=== PATIENT | male | born 1970 | race Caucasian/White ===

== ENCOUNTER 2019-11-17 06:26 | Day surgery (SDC) | payer OTHER ==
[~2019-11-17 06:26] MED LIST: Lactated Ringers 1,000 ML IV SCH
[2019-11-17] MEDS ORDERED: Midazolam 1 MG/ML 2 ML SDV ONE (07:22)
[2019-11-17] MEDS ORDERED: fentaNYL 100 MCG/2 ML SDV ONE (07:22)
[2019-11-17] MEDS ORDERED: Lidocaine 2% 5 ML SDV ONE (07:22)
[2019-11-17] MEDS ORDERED: Propofol 200 MG/20 ML SDV ONE (07:22)
--- NOTE | 2019-11-17 07:27 | PCM.PREANE ---
Preanesthetic Assessment - Anesthesia/Transfusion/Family Hx Anesthesia History: Prior Anesthesia Without Reaction Family History of Anesthesia Reaction: No Transfusion History: No Prior Transfusion(s) - Review of Systems General: No Symptoms Pulmonary: No Symptoms Cardiovascular: No Symptoms Gastrointestinal: No Symptoms Neurological: No Symptoms Other: Reports: None - Physical Assessment NPO Status Date: 11/16/19 Height: 5 ft 5 in Weight: 88.451 kg ASA Class: 2 Mental Status: Alert & Oriented x3 Airway Class: Mallampati = 2 Dentition: Reports: Normal Dentition ROM/Head Extension: Full Lungs: Clear to Auscultation, Normal Respiratory Effort Cardiovascular: Regular Rate, Regular Rhythm - Allergies Allergies/Adverse Reactions: Allergies Allergy/AdvReac Type Severity Reaction Status Date / Time No Known Allergies Allergy Verified 11/17/19 07:18 - Anesthesia Plan Pre-Op Medication Ordered: None - Acknowledgements Anesthesia Type Planned: General Anesthesia Pt an Appropriate Candidate for the Planned Anesthesia: Yes Alternatives and Risks of Anesthesia Discussed w Pt/Guardian: Yes Pt/Guardian Understands and Agrees with Anesthesia Plan: Yes Additional Comments: PMH: dm2, htn PLAN: ga/lma PreAnesthesia Questionnaire - Past Health History Medical/Surgical History: Denies Medical/Surgical History HEENT History: Reports: Impaired Vision Other HEENT History: wears glasses Cardiovascular History: Reports: None Respiratory History: Reports: None Gastrointestinal History: Reports: GERD Genitourinary History: Reports: Renal Calculus Musculoskeletal History: Reports: Osteoarthritis Neurological History: Reports: Migraines, Other (See Below) Other Neuro History: no migraines after neck surgery Psychiatric History: Reports: None Endocrine/Metabolic History: Reports: Obesity/BMI 30+, Other (See Below) Other Endocrine/Metabolic History: "insulin resistant" Hematologic History: Reports: None Immunologic History: Reports: None Oncologic (Cancer) History: Reports: None Dermatologic History: Reports: None - Infectious Disease History Infectious Disease History: Reports: Chicken Pox - Past Surgical History Head Surgeries/Procedures: Reports: None HEENT Surgical History: Reports: None Cardiovascular Surgical History: Reports: None Respiratory Surgical History: Reports: None GI Surgical History: Reports: None Male Surgical History: Reports: None Endocrine Surgical History: Reports: None Neurological Surgical History: Reports: C-Spine Other Neurological Surgeries/Procedures: neck surgery Musculoskeletal Surgical History: Reports: Shoulder Surgery Other Musculoskeletal Surgeries/Procedures:: Rotator cuff repair of the right shoulder Oncologic Surgical History: Reports: None Dermatological Surgical History: Reports: None - SUBSTANCE USE Smoking Status *Q: Former Smoker Tobacco Use Within Last Twelve Months: No - HOME MEDS Home Medications: Home Meds Hydrocortisone [Hydrocortisone 2.5% Crm] 1 applic TOP ASDIRECTED PRN 11/11/19 [ History] Lisinopril [Zestril] 5 mg PO DAILY 11/11/19 [History] Pantoprazole Sodium 40 mg PO DAILY 11/11/19 [History] metFORMIN HCl [Metformin HCl] 500 mg PO BID 11/11/19 [History] Methocarbamol [Robaxin-750] 750 mg PO 11/17/19 [History] - CURRENT (IN HOUSE) MEDS Current Meds: Current Medications Cefazolin Sodium/Dextrose 2 gm (/ Premix) 50 mls @ 100 mls/hr IV ONCALL DILAN Lactated Ringer's (Ringers, Lactated) 1,000 mls @ 100 mls/hr IV ASDIRECTED DILAN Last Admin: 11/17/19 07:17 Dose: 100 mls/hr
[2019-11-17] MEDS ORDERED: Bupivacaine 0.5% 10 ML SDV ONE (07:34)
[2019-11-17] MEDS ORDERED: Dexamethasone 4 MG/ML 5 ML MDV ONE (07:50)
[2019-11-17] MEDS ORDERED: ceFAZolin 2 GM in Premix Bag 1 BAG IV SCH (08:00)
--- NOTE | 2019-11-17 08:21 | PCM.OPNOTE ---
- General Post-Op/Procedure Note Date of Surgery/Procedure: 11/17/19 Operative Procedure(s): right ctr Pre Op Diagnosis: right cts Post-Op Diagnosis: Same Anesthesia Technique: Local, MAC, Moderate Sedation Primary Surgeon: Kenan Johnson EBL in mLs: 5 Condition: Good
--- NOTE | 2019-11-17 08:51 | PCM.POSTAN ---
POST ANESTHESIA ASSESSMENT - MENTAL STATUS Mental Status: Alert, Oriented - VITAL SIGNS Vital Signs: Last Vital Signs Temp 36.5 C 11/17/19 08:23 Pulse 72 11/17/19 08:43 Resp 14 11/17/19 08:43 BP 102/69 11/17/19 08:43 Pulse Ox 93 L 11/17/19 08:43 - RESPIRATORY Respiratory Status: Respiratory Rate WNL, Airway Patent, O2 Saturation Stable - CARDIOVASCULAR CV Status: Pulse Rate WNL, Blood Pressure Stable - GASTROINTESTINAL GI Status: No Symptoms - PAIN Pain Score: 0 - POST OP HYDRATION Hydration Status: Adequate & Stable
--- NOTE | 2019-11-17 10:14 | PCM48HPAN ---
Post Anesthesia Note - EVALUATION WITHIN 48HRS OF ANESTHETIC Vital Signs in Normal Range: Yes Patient Participated in Evaluation: Yes Respiratory Function Stable: Yes Airway Patent: Yes Cardiovascular Function Stable: Yes Hydration Status Stable: Yes Pain Control Satisfactory: Yes Nausea and Vomiting Control Satisfactory: Yes Mental Status Recovered: Yes Vital Signs: Last Vital Signs Temp 97.7 F 11/17/19 08:23 Pulse 72 11/17/19 08:43 Resp 14 11/17/19 08:43 BP 102/69 11/17/19 08:43 Pulse Ox 93 L 11/17/19 08:43
--- NOTE | 2019-11-17 11:46 | OR ---
SURGEON: Kenan Johnson DATE OF PROCEDURE: 11/17/2019 PREOPERATIVE DIAGNOSIS: Right carpal tunnel syndrome. POSTOPERATIVE DIAGNOSIS: Right carpal tunnel syndrome. PROCEDURE: Right carpal tunnel release. PRIMARY SURGEON: Kenan Johnson DO. ANESTHESIA: MAC, local. FLUID: Lactated Ringer's solution. ESTIMATED BLOOD LOSS: 5 mL. COMPLICATION: None. SPECIMEN: None. DISCHARGE DISPOSITION: Stable to PACU. HISTORY AND INDICATIONS FOR PROCEDURE: The patient was seen preoperatively in the clinic. He did have a positive EMG for carpal tunnel. Risks and goals of the procedure were explained to the patient. Informed consent obtained. DETAILS OF PROCEDURE: The patient was seen preoperatively by myself and the Anesthesia staff in the preoperative holding area where the operative site was marked. He was brought to the operative suite by the Anesthesia staff where conscious sedation was administered. A well-padded tourniquet was placed on the right forearm. The right forearm was then prepped and draped in a sterile manner. Time-out was called identifying the correct patient, the correct procedure, the correct site, and that antibiotics had been given within appropriate period of time. An incision was made proximal to the line extending obliquely from the 1st metacarpal and then in line with the radial border of the 4th digit extending proximally about 1.5 cm. This was carried down to the subcutaneous fat. A self- retaining retractor was then used. I used it to remove some of the subcutaneous fat. I then used a 15 blade to spread the soft tissues and visualize the transverse carpal ligament. I incised the transverse carpal ligament, and then using the [place] proximally and distally to the transverse carpal ligament under and above the deep palmar fascia, I spread with the [place], and then under direct visualization using [place], incised the deep palmar fascia proximally and distally to the transverse carpal ligament. After this had been accomplished, we then copiously irrigated with saline, then applied some dexamethasone. Then closed with 3-0 nylon interrupted sutures followed by a dressing with Betadine- soaked Adaptic, fluffs, and an Justen wrap. The tourniquet was let down at that time at 6 minutes. [id number] / MODL /[id number]
[2019-11-17 12:36] VITALS: BP 107/76; PULSE 65
== END 2019-11-17 10:10 | disposition home or self-care (01) ==
LOC: MW.SDS 06:26
PROVIDERS: ATTEND Orthopaedic Surgery
DX: G56.01 Carpal tunnel syndrome, right upper limb (principal); K21.9 Gastro-esophageal reflux disease without esophagitis; I10 Essential (primary) hypertension; E11.9 Type 2 diabetes mellitus without complications; M16.9 Osteoarthritis of hip, unspecified; E66.9 Obesity, unspecified; Z87.891 Personal history of nicotine dependence; Z79.899 Other long term (current) drug therapy; Z79.84 Long term (current) use of oral hypoglycemic drugs; Z68.32 Body mass index [BMI] 32.0-32.9, adult
CPT/HCPCS: 64721; J1100; J2001; J2250; J2704; J3010; J3490; J7120; 01810; 82962

== ENCOUNTER 2021-10-25 08:04 | Day surgery (SDC) | payer OTHER ==
[~2021-10-25 08:04] MED LIST changes: +Sodium Chloride 0.9% 10 ML Syringe FLUSH PRN; +Sodium Chloride 0.9% 2.5 ML Syringe FLUSH PRN; +Sodium Chloride 0.9% 20 ML SDV IV PRN
[2021-10-25] MEDS ORDERED: Propofol 200 MG/20 ML SDV ONE (08:34)
[2021-10-25] MEDS ORDERED: fentaNYL 100 MCG/2 ML SDV ONE (08:36)
[2021-10-25 09:48] VITALS: BP 129/83; PULSE 96
== END 2021-10-25 10:10 | disposition home or self-care (01) ==
LOC: MW.SDS 08:04
PROVIDERS: ATTEND Surgery
DX: Z12.11 Encounter for screening for malignant neoplasm of colon (principal); D12.5 Benign neoplasm of sigmoid colon; K62.1 Rectal polyp; K64.3 Fourth degree hemorrhoids; L05.91 Pilonidal cyst without abscess; I10 Essential (primary) hypertension; G43.909 Migraine, unspecified, not intractable, without status migrainosus; E66.9 Obesity, unspecified; E11.9 Type 2 diabetes mellitus without complications; Z79.899 Other long term (current) drug therapy; Z79.84 Long term (current) use of oral hypoglycemic drugs; Z98.890 Other specified postprocedural states; Z87.891 Personal history of nicotine dependence; Z68.36 Body mass index [BMI] 36.0-36.9, adult
CPT/HCPCS: 45385; 82947; J2704; J3010; J7120; 00812

== ENCOUNTER 2021-11-05 20:29 | Emergency (ER) | payer OTHER ==
[2021-11-05] MEDS ORDERED: Sodium Chloride 0.9% 2.5 ML Syringe FLUSH PRN (20:48)
[2021-11-05] MEDS ORDERED: Sodium Chloride 0.9% 10 ML Syringe FLUSH PRN (20:48)
[2021-11-05] MEDS ORDERED: Sodium Chloride 0.9% 1,000 ML IV ONE (20:51)
[2021-11-05] MEDS ORDERED: Ondansetron 4 MG/2 ML SDV IVPUSH ONE (20:51)
[2021-11-05] MEDS ORDERED: HYDROmorphone 1 MG/ML Syringe IVPUSH ONE (20:56)
[2021-11-05 22:21] LABS: BLOOD UREA NITROGEN,BUN 9 mg/dL (7.0-18.0); CARBON DIOXIDE,CO2 24.3 mmol/L (21.0-32.0); CHLORIDE,CL 99 mmol/L (98-107); GLUCOSE RANDOM 179 mg/dL (74-106); LIPASE 132 U/L (73-393); POTASSIUM,K 3.8 mmol/L (3.5-5.1); SODIUM,NA 136 mmol/L (136-148)
[2021-11-05] MEDS ORDERED: traMADol 50 MG Tab PO ONE (23:01)
[2021-11-05] MEDS ORDERED: Orphenadrine 60 MG/2 ML Inj IM ONE (23:06)
[2021-11-05 23:31] VITALS: BP 132/79; PULSE 96
== END 2021-11-05 23:37 | disposition home or self-care (01) ==
LOC: MW.ED 20:29
DX: S39.011A Strain of muscle, fascia and tendon of abdomen, initial encounter (principal); I10 Essential (primary) hypertension; E11.9 Type 2 diabetes mellitus without complications; K21.9 Gastro-esophageal reflux disease without esophagitis; E66.9 Obesity, unspecified; Z68.34 Body mass index [BMI] 34.0-34.9, adult; Z79.899 Other long term (current) drug therapy; Z79.84 Long term (current) use of oral hypoglycemic drugs
CPT/HCPCS: 36415; 74176; 74176-26; 80053; 81001; 83690; 85025; 96372; 96374; 96375; 99284-25; A9270-GY; J1170; J2360; J2405; J7030